=== PATIENT | male | born 1995 | race African-American/Black ===

== ENCOUNTER 2017-04-25 01:57 | Emergency (ER) | payer OTHER ==
[~2017-04-25] VITALS: Ht 165.1 cm; Wt 74.0 kg
[~2017-04-25 01:57] MED LIST: OMEP20CA16 PO; ONDA4TAB8 PO
[2017-04-25 02:08] VITALS: Ht 165.1 cm; Wt 74.0 kg
[2017-04-25] MEDS ORDERED: LIDOCAINE 1% (MDV) 20 ML INJ SC ONE (04:00)
[2017-04-25] MEDS ORDERED: IBUP-1542 PO (04:15)
--- NOTE | 2017-04-25 04:25 | ERD ---
ER Documentation Chief Complaint Date/Time DATE: 04/25/17 TIME: 04:16 Chief Complaint swollen bump on right side of chin x 1 week HPI 21-year-old male complaining of bump on the right side of his chin 1.5 week. Patient stated that he was initially painful, but the pain is resolved. Denies fever or chills. ROS All systems reviewed and are negative except as per history of present illness. Medications Home Meds Active Scripts Ibuprofen* (Motrin*) 600 Mg Tab, 600 MG PO Q6H Y for PAIN AND OR ELEVATED TEMP, #30 TAB Prov:LEIGHA JHA. SKEWER UP 04/25/17 Ondansetron Hcl* (Zofran*) 4 Mg Tablet, 4 MG PO Q6H for NAUSEA AND/OR VOMITING, #15 TAB Prov:Asia Ceron PA-C 08/18/16 Omeprazole* (Omeprazole*) 20 Mg Capsule.dr, 20 MG PO BID, #20 Prov:Asia Ceron PA-C 08/18/16 Allergies Allergies: Coded Allergies: No Known Allergy (Unverified , 05/22/14) PMhx/Soc Medical and Surgical Hx: pt denies Medical Hx, pt denies Surgical Hx History of Surgery: No Anesthesia Reaction: No Hx Neurological Disorder: No Hx Respiratory Disorders: No Hx Cardiac Disorders: No Hx Psychiatric Problems: No Hx Miscellaneous Medical Probl: No Hx Alcohol Use: No Hx Substance Use: Yes (OCC MARIJUANA) Hx Tobacco Use: No Smoking Status: Never smoker Physical Exam Vitals Vital Signs Date Time Temp Pulse Resp B/P Pulse Ox O2 Delivery O2 Flow Rate FiO2 04/25/17 02:08 97.8 94 20 153/91 99 Physical Exam General: Well-developed, well-nourished, conscious and coherent, in no distress Skin: Warm and dry without rash, good texture and turgor. A 1 cm fluctuant nodule noted on the right side of the chin, no erythema, nontender Head: Normocephalic without evidence of trauma Eyes: Sclera and conjunctivae normal; pupils equal, round, and reactive to light; extraocular movements are intact Neck: Supple without meningismus or adenopathy. Carotids are equal. Trachea midline. No bruits or JVD Chest: Normal AP diameter. Good expansion without retractions. Nontender. Lungs are clear to auscultate bilaterally with good tidal volume Heart: Regular rate and rhythm. No murmur, rub, or gallops heard Abdomen: Soft and nontender without masses, guarding, or rebound. Bowel sounds are active. No hepatosplenomegaly Extremities: Full range of motion. Good strength bilaterally. No clubbing, cyanosis, or edema. Peripheral pulses are intact. Sensation intact Neuro: Alert and oriented 4, GCS 15. Cranial nerves grossly intact. Motor and sensory exams nonfocal. Moves all extremities. Speech clear. Gait normal Results 24 hrs Current Medications Medications (Trade) Dose Ordered Sig/Jeremy Route PRN Reason Start Time Stop Time Status Last Admin Dose Admin Lidocaine (Xylocaine 1% (Mdv) 20 ml) 20 ml ONCE ONCE SC 04/25/17 04:00 04/25/17 04:01 DC Procedures/MDM Procedure note: Incision and Drainage Verbal consent obtained for incision and drainage of patient's abscess. The area was prepped with Betadine. Lidocaine 1% was infiltrated for local anesthesia. After appropriate anesthesia, incision was made using #11 blade. Small amount of sebum was drained. Attempt was made to remove the sac of the sebaceous cyst. The wound was then cleaned and dressed. Patient tolerated procedure well. Well-appearing 21-year-old male presents the ED with a sebaceous cyst on the right chin. The cyst was incised and drained. Low suspicion for cellulitis, abscess, or necrotizing fasciitis. Patient appears well, stable for discharge and outpatient management. Medical decision making shared with patient and family. Education provided to patient and family. Patient and family expressed understanding of the plan. Medications on discharge: Ibuprofen. Follow-up: Primary care provider in 2-3 days or return to ED if worse. Disclaimer: Inadvertent spelling and grammatical errors are likely due to EHR/ dictation software use and do not reflect on the overall quality of patient care. Also, please note that the electronic time recorded on this note does not necessarily reflect the actual time of the patient encounter. Departure Diagnosis: Primary Impression: Sebaceous cyst Condition: Good Patient Instructions: Sebaceous Cyst, Infected (I And D) Additional Instructions: Return to this facility in 2 DAYS for a follow-up exam.Return sooner if your condition worsens. LEIGHA JHA NP Apr 25, 2017 04:25
== END 2017-04-25 04:23 | disposition home or self-care (01) ==
LOC: FTE 01:57
DX: L72.3 Sebaceous cyst (principal)
CPT/HCPCS: 10060; Z7610

== ENCOUNTER 2017-12-15 15:20 | Emergency (ER) | END 2017-12-15 16:14 | disposition home or self-care (01) ==